=== PATIENT | male | born 1965 | race Caucasian/White ===

== ENCOUNTER 2018-02-01 08:26 | Emergency (ER) | payer BC ==
[2018-02-01] MEDS ORDERED: Diphtheria,Pertussis(Acell),Tetanus Vaccine 0.5 ML SDV IM ONE (08:46)
[2018-02-01] MEDS ORDERED: Tetracaine HCl/PF 0.5% 4 ML Bottle EYELF ONE (08:48)
--- NOTE | 2018-02-01 08:55 | EDM.PDOC ---
ED HPI GENERAL MEDICAL PROBLEM - General Chief Complaint: Eye Problems Stated Complaint: POKED LT EYE WITH PINE NEEDLES Time Seen by Provider: 02/01/18 08:49 Source of Information: Reports: Patient History Limitations: Reports: No Limitations - History of Present Illness INITIAL COMMENTS - FREE TEXT/NARRATIVE: 52 yo male from [facility] presents with L eye pain/tearing/photophobia after being scratched yesterday morning by a pine branch. Is here for evaluation. 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: Other (see below) (none) Left Eye Pain Score (Numeric/FACES): 8 - Related Data Allergies Allergy/AdvReac Type Severity Reaction Status Date / Time No Known Allergies Allergy Verified 02/01/18 08:40 Home Meds: Home Meds Citalopram [Citalopram HBr] 20 mg PO DAILY 02/01/18 [History] Gemfibrozil 600 mg PO DAILY 02/01/18 [History] Past Medical History - Past Health History Medical/Surgical History: Denies Medical/Surgical History - Infectious Disease History Infectious Disease History: Reports: Chicken Pox - Past Surgical History HEENT Surgical History: Reports: LASIK Social & Family History - Tobacco Use Smoking Status *Q: Never Smoker - Caffeine Use Caffeine Use: Reports: Coffee - Recreational Drug Use Recreational Drug Use: No ED ROS GENERAL - Review of Systems Review Of Systems: See Below Constitutional: Reports: No Symptoms HEENT: Reports: Eye Pain Respiratory: Reports: No Symptoms Skin: Reports: No Symptoms Neurological: Reports: No Symptoms ED EXAM GENERAL W FULL EYE - Physical Exam Exam: See Below Exam Limited By: No Limitations General Appearance: Alert, WD/WN, No Apparent Distress Eye Exam: Left Eye: Conjunctival Injection, Other (photophobia/tearing) Eyelids: Bilateral: Normal Appearance Conjunctiva & Sclera: Left: Other (injection left) Cornea Exam: Left: Corneal Abrasion (directly beneath pupil), Examined with Flourescein Extraocular Movements: Bilateral: Intact Pupillary Size: Bilateral: 3 mm Pupillary Reaction: Bilateral: Brisk Ears: Hearing Grossly Normal Nose: Normal Inspection, Normal Mucosa, No Blood Throat/Mouth: Normal Voice, No Airway Compromise Head: Atraumatic, Normocephalic Neck: Normal Inspection Respiratory/Chest: No Respiratory Distress Neurological: Alert, Oriented, CN II-XII Intact, Normal Cognition, No Motor/ Sensory Deficits Psychiatric: Normal Affect, Normal Mood Skin Exam: Warm, Dry, Intact, Normal Color, No Rash Course - Vital Signs Last Recorded V/S: Last Vital Signs Temp 36.1 C 02/01/18 08:37 Pulse 70 02/01/18 08:37 Resp 16 02/01/18 08:37 BP 145/69 H 02/01/18 08:37 Pulse Ox 100 02/01/18 08:37 - Orders/Labs/Meds Orders: Active Orders 24 hr Category Date Time Status Vaccines to be Administered [RC] PER UNIT ROUTINE Care 02/01/18 08:46 Active Tetracaine HCl/PF [Tetracaine 0.5% Steri-Unit Blanche] Med 02/01/18 08:48 Once 1 ml EYELF ASDIRECTED ONE Meds: Medications Discontinued Medications Generic Name Dose Route Start Last Admin Trade Name Freq PRN Reason Stop Dose Admin Diphtheria/Tetanus/Acell Pertussis 0.5 ml 02/01/18 08:46 Adacel IM 02/01/18 08:47 .ONCE ONE Departure - Departure Time of Disposition: 08:58 Disposition: Home, Self-Care 01 Condition: Good Clinical Impression: Corneal abrasion Qualifiers: Encounter type: initial encounter Laterality: left Qualified Code(s): S05.02XA - Injury of conjunctiva and corneal abrasion without foreign body, left eye, initial encounter - Discharge Information *PRESCRIPTION DRUG MONITORING PROGRAM REVIEWED*: No *COPY OF PRESCRIPTION DRUG MONITORING REPORT IN PATIENT GENEVA: No Instructions: Corneal Abrasion, [id number] Referrals: PCP,None [Primary Care Provider] - Additional Instructions: Avoid lights. No eye rubbing. Use ibuprofen and if needed Endeavor for pain relief. Use erythromycin tid for 1-2 days to the left eye to prevent infection. Recheck if not improving. - My Orders Last 24 Hours: My Active Orders 02/01/18 08:46 Vaccines to be Administered [RC] PER UNIT ROUTINE 02/01/18 08:48 Tetracaine HCl/PF [Tetracaine 0.5% Steri-Unit Blanche] 1 ml EYELF ASDIRECTED ONE - Assessment/Plan Last 24 Hours: My Active Orders 02/01/18 08:46 Vaccines to be Administered [RC] PER UNIT ROUTINE 02/01/18 08:48 Tetracaine HCl/PF [Tetracaine 0.5% Steri-Unit Blanche] 1 ml EYELF ASDIRECTED ONE
== END 2018-02-01 09:10 | disposition home or self-care (01) ==
LOC: JP.ED 08:26
DX: S05.02XA Injury of conjunctiva and corneal abrasion without foreign body, left eye, initial encounter (principal); W22.8XXA Striking against or struck by other objects, initial encounter
CPT/HCPCS: 90471; 90715; 99283; A9270